=== PATIENT | female | born 1975 | race Hispanic/Latino ===

== ENCOUNTER 2025-05-15 08:28 | Day surgery (SDC) | payer BC ==
[2025-05-15] MEDS ORDERED: Sevoflurane 250 ML INH ANEST BOTTLE ONE (09:31)
[2025-05-15] MEDS ORDERED: Lidocaine 1% PF 5 ML VIAL ONE (09:52)
[2025-05-15] MEDS ORDERED: SUCCINYLCHOLINE/SOD CL,ISO/PF 200 MG/10 ML SYRINGE FS ONE (09:52)
[2025-05-15] MEDS ORDERED: Glycopyrrolate 0.2 MG/ML 5 ML SYRINGE ONE (09:52)
[2025-05-15] MEDS ORDERED: PROPOFOL 20 ML ONE ×2 (09:52→11:21)
[2025-05-15] MEDS ORDERED: Ondansetron PF 4 MG/2 ML Vial ONE (09:52)
[2025-05-15 10:09] LABS: Hematocrit 33.8 % (34.9-44.5)
[2025-05-15] MEDS ORDERED: Hydrocodone-Acetamin 15 ML UDCUP ONE (13:28)
== END 2025-05-15 14:40 | disposition home or self-care (01) ==
LOC: CSHSDC 08:28
PROVIDERS: ATTEND Otolaryngology Plastic Surgery within the Head & Neck
PROC: 0C7S8ZZ Dilation of Larynx, Via Natural or Artificial Opening Endoscopic (ICD-10-PCS; principal; 2025-05-15)
DX: J38.6 Stenosis of larynx (principal); J37.0 Chronic laryngitis
CPT/HCPCS: 36415; 85014; C1726; J0169; J1100; J2272; J2405; J2704; J3010; J3301